=== PATIENT | female | born 1975 | race Caucasian/White ===

== ENCOUNTER → 2022-12-29 11:02 | Outpatient (CLI) | payer OTHER, SELFPAY ==
--- NOTE | 2022-12-29 11:04 | DI.RAD.S_ITS ---
PROCEDURE: XR ANKLE RT MIN 3V INDICATIONS: Pain in distal tib/fib TECHNIQUE: 3 views of the ankle were acquired. COMPARISON: None. FINDINGS: Bones: No evidence of fracture. There is irregular calcification involving the medial and lateral malleolar ligaments as well as small marginal osteophyte and focal irregular soft tissue calcification posteriorly, probably all related to prior trauma. Soft tissues: No tibiotalar joint effusion. Achilles tendon appears normal. Generalized soft tissue swelling IMPRESSION: Generalized soft tissue swelling without evidence of acute fracture. Ligamental and soft tissue calcification probable sequelae of prior trauma. Consider follow-up MR imaging if high clinical suspicion persists. Approved by: Kvng Stone M.D. on 12/29/2022 at 12:43
== END ==
PROVIDERS: Referring Provider Physician Assistant; Visit Provider Physician Assistant
DX: M79.604 Pain in right leg (principal); M79.89 Other specified soft tissue disorders
CPT/HCPCS: 73610

== ENCOUNTER 2024-08-30 07:31 | Day surgery (SDC) | payer OTHER, SELFPAY ==
[2024-08-30 08:38] VITALS: BP 105/65; PULSE 75; RESP 18; TEMP 37.1; O2SAT 100
[2024-08-30] MEDS: LACTATED RINGERS 1,000 ML 42 ML IV (08:50)
--- NOTE | 2024-08-30 09:06 | PM.HP.IH.1 ---
History of Present Illness History of Present Illness Date Patient Seen: 08/30/24 Time Patient Seen: 09:06 Date of Onset of Symptoms: 08/30/24 Chief complaint: SDC Narrative: 49-year-old white female presents for initial screening colonoscopy. No issues. [facility] Medical History (Updated 08/30/24 @ 09:07 by Jayy Sears MD) Colon cancer screening (08/30/24) Social History Smoking Status: Never smoker Meds Home Medications and Allergies Allergies Allergy/AdvReac Type Severity Reaction Status Date / Time No Known Drug Allergies Allergy Unverified 12/29/22 10:27 Review of Systems Review of Systems ROS: Yes All systems reviewed with the patient and are negative except as otherwise documented Exam Vital Signs (past 8 hours): - 08/30/24 08:38 Temperature 98.8 F Pulse Rate 75 Respiratory Rate 18 Blood Pressure 105/65 Pulse Oximetry 100 Oxygen Delivery Method Room Air Oxygen Delivery Method Room Air Narrative Exam Narrative: Gen: NAD, sitting comfortably in bed, appears well HEENT: Sclera are anicteric, head is normocephalic and atraumatic, trachea is midline. CV: RRR, no JVD Resp: clear to auscultation bilaterally, equal chest wall movement bilaterally Abd: soft, nontender, normoactive bowel sounds Ext: no edema, full range of motion Neuro: Cranial nerves II-XII grossly intact, no focal deficits Skin: No erythema or ecchymosis Assessment & Plan Assessment and plan (1) Colon cancer screening: Status: Acute Assessment & Plan narrative: Patient presents for colonoscopy Risks, benefits, alternatives to colonoscopy explained, including but not limited to bowel perforation or other serious complication requiring surgery at less than 1 in 5000 colonoscopies, abdominal pain, cramping or bleeding and less than 1% of colonoscopies, and the chances that we find a diagnosis that would require further intervention of about 2%. Patient agrees to proceed. Time-Based Coding :: [TOTAL MINUTES] spent with patient and on the chart (including review of chart, obtaining history, exam, reviewing outside data, placing orders, documenting exam and treatment plan, and counseling patient) on [DATE]. [employer] Document charge(s): No
--- NOTE | 2024-08-30 09:36 | P.OP.COLON_ITS ---
Operative Date/Time/Diagnoses Date of procedure: 08/30/24 Time of procedure: 09:37 Pre-op diagnosis: Colon screening Post-op diagnosis: same Procedure & Clinicians Study performed: Colonoscopy Same procedure as scheduled: Yes Indications: Colon screening Surgeon: Jayy Sears Procedure Notes SCOAP/Timeout: Performed Procedure in detail: Time-out was performed. Mac was induced. Patient was placed in left lateral d ecubitus position. The perineum was inspected without any gross abnormality. Lubricated pediatric colonoscope was inserted and advanced to the cecum. The terminal ileum was intubated. The colonoscope was withdrawn slowly inspecting the circumference of the colon. Very small polyps may have been missed, prep quality was adequate. Retroflexed view of the rectum showed small, non prolapsed nonbleeding internal hemorrhoids. The scope was withdrawn the patient was taken to PACU in good condition. Scope withdrawal time: 7 Findings: internal hemorrhoids Specimen(s): none sent Complications: none Post-procedure Recommendations: Colonoscopy in 10 years Follow up: as needed Disposition: PACU
[2024-08-30 09:38] VITALS: BP 84/44; PULSE 69; RESP 14; TEMP 36.6; O2SAT 99
[2024-08-30 09:44] VITALS: BP 85/50; PULSE 72; RESP 16; O2SAT 99
[2024-08-30 09:49] VITALS: BP 86/46; PULSE 73; RESP 19; O2SAT 100
[2024-08-30 09:53] VITALS: BP 86/46; PULSE 73; RESP 18; TEMP 36.7; O2SAT 100
[2024-08-30 10:10] VITALS: BP 101/63; PULSE 71; RESP 14; O2SAT 98
== END 2024-08-30 10:21 | disposition home or self-care (01) ==
PROVIDERS: Referring Provider Surgery; Visit Provider Surgery
PROC: 0DJD8ZZ Inspection of Lower Intestinal Tract, Via Natural or Artificial Opening Endoscopic (ICD-10-PCS; CPT 45378; principal; 2024-08-30 09:15)
DX: Z12.11 Encounter for screening for malignant neoplasm of colon (principal); K64.8 Other hemorrhoids
CPT/HCPCS: 45378; J2704

== ENCOUNTER → 2025-06-09 07:10 | Outpatient (CLI) | payer OTHER, SELFPAY ==
[2025-06-09 07:35] LABS: Add Manual Diff / Slide Review NO; Hematocrit 41.2 % (36-46); Hemoglobin 13.7 g/dL (12.0-16.0); Lymphocytes Absolute Auto 1800 /uL (1100-4500); Mean Corpuscular HGB Conc 33.2 % (30-36); Mean Corpuscular Hemoglobin 28.6 PG (26-34); Mean Corpuscular Volume 86.2 fL (80-100); Platelet Count 232 X10^3/uL (150-400)
[2025-06-09 08:02] LABS: Alanine Aminotransferase 23 IU/L (<35); Albumin 4.1 g/dL (3.5-5.0); Albumin Globulin Ratio 1.4 (1.0-2.8); Alkaline Phosphatase 51 U/L (38-126); Blood Urea Nitrogen 14 mg/dL (7-17); Calcium 9.6 mg/dL (8.4-10.2); Carbon Dioxide 27 mmol/L (22-32); Chloride 106 mmol/L (98-107); Cholesterol 230 mg/dL (140-199); Estimated Glomerular Filt Rate > 60 mL/min (>60); Globulin 3.0 g/dL (1.7-4.1); Glucose 87 mg/dL (70-99); HDL Cholesterol 97 mg/dL (40-60); HEMOLYSIS < 15 (0-50); Iron 90 ug/dL (37-170); Potassium 4.8 mmol/L (3.4-5.1); Sodium 139 mmol/L (137-145); Total Protein 7.1 g/dL (6.3-8.2); Triglycerides 92 mg/dL (35-150)
[2025-06-09 08:19] LABS: Vitamin D 25 Hydroxy (D3) 35.0 ng/mL (30.0-100.0)
[2025-06-09 08:32] LABS: TSH w/ Reflex to FT4 2.88 uIU/mL (0.47-4.68)
[2025-06-09 08:39] LABS: Ferritin 9 ng/mL (6-137)
== END ==
PROVIDERS: PCP Family Medicine; Referring Provider Family Medicine; Visit Provider Family Medicine
DX: E55.9 Vitamin D deficiency, unspecified (principal); E61.1 Iron deficiency; M25.50 Pain in unspecified joint; Z82.61 Family history of arthritis; Z83.49 Family history of other endocrine, nutritional and metabolic diseases
CPT/HCPCS: 36415; 80053; 80061; 82306; 82728; 83540; 84443; 85025; 86200; 86430